=== PATIENT | female | born 1995 | race Caucasian/White ===

== ENCOUNTER 2016-07-03 03:27 | Outpatient (CLI) | payer OTHER ==
[~2016-07-03] VITALS: Ht 156.2 cm; Wt 84.9 kg
[2016-07-03 03:33] VITALS: Ht 156.2 cm; Wt 84.9 kg
[2016-07-03 03:54] VITALS: BP 117/73; PULSE 101; RESP 18
[2016-07-03] MEDS ORDERED: PRENAT PO (03:56)
[2016-07-03] MEDS ORDERED: FOL8 PO (03:57)
[2016-07-03] MEDS ORDERED: CALC-516 PO (03:57)
[2016-07-03] MEDS ORDERED: FERR325C PO (03:58)
[2016-07-03] MEDS ORDERED: LACTATED RINGER'S 1,000 ML IV STA (04:09)
[2016-07-03] MEDS ORDERED: LACTATED RINGER'S 1,000 ML IV SCH (05:15)
--- NOTE | 2016-07-03 06:36 | RADRPT ---
PROCEDURE: ULTRASOUND BIOPHYSICAL PROFILE CLINICAL INDICATION: 21-year-old female with cramping for viability. TECHNIQUE: Multiple sonographic images were obtained in order to perform a biophysical profile The images were reviewed on a PACS workstation. COMPARISON: None. FINDINGS: There is a single viable intrauterine gestation. There is a vertex presentation. Cardiac activity i s present at 143 beats per minute. The placenta is anterior. The results of the biophysical profile are as follows: breathing movement = 2/2 Gross body movement = 2/2 tone = 2/2 Qualitative amniotic fluid volume = 2/2 Amniotic fluid index equals 9.2 cm. This yields a biophysical profile score of 8/8. IMPRESSION: Biophysical profile score is 8/8. .Shelton Whitaker MD, MD Date Time Electronically viewed and signed by .Shelton Whitaker MD, MD on 07/03/2016 06:36 .M/
--- NOTE | 2016-07-03 07:55 | TRIAGE ---
OB Triage Datetime Report Generated by CPN: 07/03/2016 07:55 Datetime: 07/03/2016 07:24 Maternal Assessment Level of Consciousness: Fully Conscious DTR's/Clonus: DTRs 2+ Headache: Denies Blurred Vision: No Nausea/Vomiting: Denies RUQ Epigastric Pain: Denies Facial Edema: None Labor Evaluation Frequency: NONE AT THIS TIME Pattern: Normal: <= 5 Contractions in 10 Minutes Resting Tone Ehrenberg: Relaxed Heart Rate FHR Baseline Rate: 125 Monitor Mode: External US FHR Baseline Changes: No Baseline Change Variability: Moderate 6-25 bpm Accelerations: 15X15 Decelerations: None Category: Category I Membrane Status: Intact Datetime: 07/03/2016 07:03 Stage of : OB Triage Labor Evaluation Frequency: 0 Monitor Mode: External Resting Tone Ehrenberg: Relaxed Heart Rate FHR Baseline Rate: 120 Monitor Mode: External US Variability: Moderate 6-25 bpm Accelerations: 15X15 Decelerations: None Category: Category I Pain Assessment Pain Scale: 0 Pain Presence: None/Denies Pain Type: N/A Datetime: 07/03/2016 06:24 Stage of : OB Triage Bedside Blood Glucose: 81 Datetime: 07/03/2016 06:11 Stage of : OB Triage Datetime: 07/03/2016 06:00 Labor Evaluation Frequency: irregular Monitor Mode: External Duration (sec)2399: 40-50 Quality: Mild Resting Tone Ehrenberg: Relaxed Heart Rate FHR Baseline Rate: 120 Monitor Mode: External US Variability: Moderate 6-25 bpm Accelerations: 15X15 Decelerations: None Category: Category I Datetime: 07/03/2016 04:32 Vaginal Exam Dilatation (cms): 2.0 Effacement (%): 50 Station: -3 Exam By: M RANGEL Vaginal Bleeding: None Cervix, Consistency: Firm Cervix, Position: Posterior Presentation 'A': Cephalic Datetime: 07/03/2016 04:29 Stage of : OB Triage Labor Evaluation Frequency: 2-4 Monitor Mode: External Duration (sec)2399: 40-50 Quality: Mild Resting Tone Ehrenberg: Relaxed Contraction Comments: Irritability noted Heart Rate FHR Baseline Rate: 125 Monitor Mode: External US Variability: Moderate 6-25 bpm Accelerations: 15X15 Decelerations: None Category: Category I Datetime: 07/03/2016 03:51 Stage of : OB Triage Assessment Type: Triage Maternal Assessment Level of Consciousness: Fully Conscious DTR's/Clonus: DTRs 1+ Headache: Denies Blurred Vision: Yes Respiratory Effort: Unlabored Breath Sounds, Left: Clear and Equal Breath Sounds, Right: Clear and Equal Nausea/Vomiting: Denies RUQ Epigastric Pain: Denies Lower Extremities Edema: Bilateral Lower Extremities Degree: 1+ Upper Extremities Edema: None Degree: None Facial Edema: None Fall Risk Assessment History of Falling: (0) No Secondary Diagnosis: (15) Yes (Annotations: GDM DIET CONTROLLED) Ambulatory Aid: (0) Bedrest/Nurse Assist IV Therapy: (0) No Gait: (0) Normal/Bedrest/Immobile Mental Status: (0) Oriented to Own Ability Fall Score: 15 Fall Risk Score Definition: No Risk: No action required Pain Assessment Pain Scale: 6 Pain Presence: Intermittent Pain Type: Cramping Pain Location: Abdomen; Other (Annotations: LOW ABDOMEN) Pain Relief Measures: Comfort Measures Datetime: 07/03/2016 03:41 Stage of : OB Triage Monitor Mode: External Monitor Mode: External US Datetime: 07/03/2016 03:30 Time of Arrival: 07/03/2016 03:21 EGA: 34.1 Arrived By: Wheelchair Arrived From: Home Chief Complaint: LOW ABD PAIN Movement: Present Contractions: Irregular Time Contractions Began: 07/03/2016 02:00 Rupture of Membranes: Denies Vaginal Bleeding: None Vaginal Discharge: Denies Recent Sexual Intercouse: Denies Abdominal Trauma: Not Applicable Patient Complaints: Cramping Initial Plan: VS, EFM, IV HYDRATION,, SVE, BPP, BS, LABORIST TO EVAL PT FOR DC
--- NOTE | 2016-07-03 08:02 | PN ---
Date/Time of Note Date/Time of Note DATE: 07/03/16 TIME: 07:58 OB Subjective Subjective Subjective Patient is a 21-year-old 1 para 0 at 34+ weeks gestation who presents with occasional contractions She reports no leaking fluid, no vaginal bleeding She reports positive movement She has had good care OB Objective Objective Objective No regular contractions noted NST reactive Biophysical profile 8 out of 8 HEENT: WNL Abdomen: WNL Extremities: Normal Cervical Dilatation: 1cm Accelerations: Accelerations Present Decelerations: No Decelerations Varibility: Moderate Contractions on Admission: >10 Minutes Apart OB Assessment/Plan Other plan: Plan to be discharged home Patient instructed to return if the contractions are regular or any evidence of leaking fluid, vaginal bleeding or no movement Patient was counseled to call her PLASTIC EYE TECHNICIAN and follow up with him in 1-2 days MIGUEL LOONEY Jul 03, 2016 08:02
== END 2016-07-03 07:45 | disposition home or self-care (01) ==
LOC: OBT 03:27 → L-D 03:29 → OBT 07:45
PROVIDERS: ATTEND Obstetrics & Gynecology
DX: O62.9 Abnormality of forces of labor, unspecified (principal); O24.410 Gestational diabetes mellitus in pregnancy, diet controlled; Z3A.34 34 weeks gestation of pregnancy
CPT/HCPCS: 36415; 76818; 82962; 96365; 96372; 96375; J7120; Z7500; G0463

== ENCOUNTER 2016-07-03 17:53 | Inpatient (IN) | payer OTHER ==
[~2016-07-03] VITALS: Ht 157.5 cm; Wt 87.0 kg
[~2016-07-03 17:53] MED LIST: CALC-516 PO; FERR325C PO; FOL8 PO; PRENAT PO
[2016-07-03 18:02] VITALS: Ht 157.5 cm; Wt 87.0 kg
[2016-07-03 18:04] VITALS: BP 123/64; PULSE 98; RESP 18
--- NOTE | 2016-07-03 18:57 | HP ---
Date/Time of Note Date/Time of Note DATE: 07/03/16 TIME: 18:48 OB - History Hx of Present Free Text/Dictation Patient is 1 para 0 at 34 weeks of gestation who presents with contractions She also reports of dark vaginal bleeding Patient was seen earlier in triage today and the OB ultrasound was within normal limits and she was sent home and told to return if the contractions are regular Chief Complaint: contractions : 1 Para: 0 Care: Good Care Ultrasounds: Other (OB ultrasound from this morning within normal limits) Abnormal Ultrasound Findings: OB ultrasound from this morning within normal limits Placenta anterior; no evidence of previa NICHOLAS of 9.2 Biophysical profile of 8 out of 8 Past Family/Social History * Past Medical, Surgical, Family and Obstetric Histories reviewed from chart. OB Admission Exam Vital Signs Vital Signs Vital Signs Date Time Temp Pulse Resp B/P Pulse Ox O2 Delivery O2 Flow Rate FiO2 07/03/16 18:04 98.0 98 18 123/64 Room Air Physical Exam HEENT: WNL Abdomen: WNL Membranes: Intact Accelerations: Accelerations Present Decelerations: No Decelerations Varibility: Moderate Contractions on Admission: < 5 Minutes Apart OB Assessment/Plan Reason for admission: labor Other plan: Admit patient IV fluids and IV antibiotics Magnesium sulfate Betamethasone for lung maturity MIGUEL LOONEY Jul 03, 2016 18:57
[2016-07-03] MEDS ORDERED: MAGNESIUM SULFATE 4 GM/100 ML 100 ML IV ONE (19:00)
[2016-07-03] MEDS: LACTATED RINGER'S 1,000 ML IV SCH (19:11)
[2016-07-03] MEDS: AMPICILLIN 2 GM/NS (PMX) 100 ML IV SCH (19:13)
[2016-07-03] MEDS: BETAMET NA PHOS/AC(6 MG/ML) 5ML INJ IM SCH (19:17)
[2016-07-03 19:27] LABS: ADD SCAN DIFF NO
[2016-07-03 19:30] LABS: BASOPHIL # 0.1 10^3/ul (0.0-0.1); BASOPHILS % 0.4 % (0.0-2.0); EOSINOPHILS # 0.1 10^3/ul (0.0-0.5); EOSINOPHILS % 0.8 % (0.0-7.0); HEMATOCRIT 38.3 % (37.0-47.0); HEMOGLOBIN 12.7 g/dl (12.0-16.0); LYMPHOCYTES # 2.2 10^3/ul (0.8-2.9); MEAN CORPUSCULAR HEMOGLOBIN 29.3 pg (29.0-33.0); MEAN CORPUSCULAR HGB CONC 33.2 g/dl (32.0-37.0); MEAN CORPUSCULAR VOLUME 88.5 fl (72.0-104.0); MEAN PLATELET VOLUME 11.2 fl (7.4-10.4); MONOCYTE # 1.1 10^3/ul (0.3-0.9); MONOCYTES % 9.7 % (0.0-13.0); NEUTROPHILS % 68.3 % (30.0-74.0); PLATELET COUNT 274 10^3/UL (140-415); RED BLOOD COUNT 4.33 10^6/ul (4.20-5.40); RED CELL DISTRIBUTION WIDTH 14.1 % (11.5-14.5); WHITE BLOOD COUNT 11.7 10^3/ul (4.8-10.8)
[2016-07-03 19:50] LABS: INR 0.94; PARTIAL THROMBOPLASTIN TIME 29.3 Sec (25.0-35.0); PROTIME 12.6 Sec (12.2-14.2)
[2016-07-03 19:52] LABS: ALBUMIN 3.7 g/dl (3.3-4.9)
[2016-07-03 19:53] LABS: POTASSIUM 3.8 mmol/L (3.5-5.1)
[2016-07-03 19:55] LABS: ALBUMIN/GLOBULIN RATIO 1.02; BILIRUBIN,INDIRECT 0.2 mg/dl (0-1.1); BILIRUBIN,TOTAL 0.2 mg/dl (0.2-1.3); CREATININE 0.44 mg/dl (0.44-1.00); TOTAL PROTEIN 7.3 g/dl (6.1-8.1)
[2016-07-03] MEDS ORDERED: TERBUTALINE 1 ML ONE (20:22)
[2016-07-03] MEDS ORDERED: TERBUTALINE 1 MG/ML INJ SC ONE (20:30)
[2016-07-03] MEDS: MAGNESIUM SULFATE 20 GM/500 ML 500 ML IV SCH (21:02)
[2016-07-04] MEDS: AMPICILLIN 2 GM/NS (PMX) 100 ML IV SCH ×4 (01:23→18:34)
[2016-07-04] MEDS: MAGNESIUM SULFATE 20 GM/500 ML 500 ML IV SCH ×2 (06:08→14:21)
[2016-07-04 10:15] LABS: BARBITURATES Negative (NEGATIVE); BENZODIAZEPINES Negative (NEGATIVE); CANNABINOIDS Negative (NEGATIVE); COCAINE Negative (NEGATIVE); OPIATES Negative (NEGATIVE)
[2016-07-04] MEDS: LACTATED RINGER'S 1,000 ML IV SCH ×3 (10:33→18:33)
--- NOTE | 2016-07-04 12:40 | QN ---
Documentation Comment Laborist HD#2 Pt doing well. Denies UCs, LOF or VB. Reports normal FM VS reviewed and wnl Gen: well appearing, NAD CV: RRR, nl s1s2 Resp: CTAB Abd: soft, gravid, NT Ext: SCDs in place, 1+ pitting edema bilaterally, nontender calves FHT: baseline 120s, mod jamar, +accels, no decels [place]: irregular UCs this AM, acontractile now Utox neg Random FSBG 102 A/P: 21yo G1 at 34+2wks GA admitted 2/2 concern for PTL, also possibly GDMA1 ->Continue BMZ, #2 due tonight at 1900 ->Continue Magnesium Sulfate as ordered ->EFW as subjectively S>D ->Check fasting and 2hr PP FSBG given pt report of GDMA1 ->development educator consult requested ->NICU and MFM consult BRENNON BOJORQUEZ MD Jul 04, 2016 12:40
[2016-07-04] MEDS: ACCU-CHEK XX SCH ×2 (13:30→19:28)
--- NOTE | 2016-07-04 15:05 | CONS ---
DATE OF ADMISSION: 07/03/2016 DATE OF CONSULTATION: 07/04/2016 REFERRING PHYSICIAN: Darrius Brock MD HISTORY OF PRESENT ILLNESS: I was asked to talk with this mother, who is a 21-year-old 1, p shanthi 0 with a 34.2-week estimated gestational age infant in labor. Mother's history is significant for labor and gestational diabetes, on diet control now. Mother's blood typ e is O positive, RPR negative, HBsAg negative, HIV negative, GBS unknown, GC and chlamydia cultures negative. Mother was admitted on 07/03/2016 in labor and was started on magnesium sulfate, and has also been started on antibiotics. She received 1 dose of betamethasone on 07/03/2016 at 191 7 and second dose is to be given today. I was asked to talk with this mother about premature . I talked with mother about the infant to be monitored for respiratory distress at the time of and treatment including oxygen adminis tration, nasal cannula and CPAP administration. I also discussed about the great possibility of pre mature lung disease, which is respiratory distress syndrome requiring surfactant administration, if infant's oxygen requirement is tight. Discussed about apnea of prematurity, as well as treatment wi th nasal cannula and CPAP and caffeine. Discussed about risk of infection and to be started on anti biotics if suspicion of index is high. Discussed about hyperbilirubinemia and treatment with photot herapy. I also discussed about starting the infant on IV fluids initially to be started on feeding protocol if the is clinically stable, and to be advanced gradually. Mother would like to yulisa ast feed the infant and recommended to pump early and discussed the benefits of breast milk. Also d iscussed about feeding intolerance, poor feeding requiring gavage feeding and risk for gastroesophag eal reflux. Discussed about length of stay of 2+ weeks including weight gain, temperature stability and all p.o. feeding before discharge. Reassured them about good prognosis and all parents' questions were answered, and the discussion was concluded after parents' questions were answered. Dictated By: ARLENE GREEN/NTS Conf#: [id number] DID#: [id number] CC: DARRIUS BROCK MD;*EndCC*
--- NOTE | 2016-07-04 16:44 | RADRPT ---
PROCEDURE: Obstetrical ultrasound. CLINICAL INDICATION: , evaluation. Pelvic pain. TECHNIQUE: Transabdominal sonographic images of the pelvis are obtained. COMPARISON: 07/03/2016 FINDINGS: Single intrauterine gestation. There is a cephalic presentation. Measurements were made in order to determine age. The results are as follows: BPD = 8.73 cm HC = 30.49 cm AC = 30.40 cm FL = 6.62 cm Heart rate = 132 beats per minute The placenta is anterior. There is no evidence for an abruption or placenta previa. Ovaries are not visualized. IMPRESSION: Single intrauterine gestation of approximately 34 weeks 3 days by ultrasound criteria. [place] estimated weight = 2402 g; 45 percentile for gestational age of 34 weeks 2 days. RPTAT: AADD .Andres Medina MD, Date Time Electronically viewed and signed by .Andres Medina MD, on 07/04/2016 16:43 .B/
[2016-07-04] MEDS: BETAMET NA PHOS/AC(6 MG/ML) 5ML INJ IM SCH (19:28)
[2016-07-05] MEDS: AMPICILLIN 2 GM/NS (PMX) 100 ML IV SCH ×4 (00:13→17:34)
[2016-07-05] MEDS: MAGNESIUM SULFATE 20 GM/500 ML 500 ML IV SCH ×2 (00:17→09:51)
[2016-07-05] MEDS: LACTATED RINGER'S 1,000 ML IV SCH ×3 (02:33→17:35)
[2016-07-05] MEDS: ACCU-CHEK XX SCH ×5 (06:00→20:05)
--- NOTE | 2016-07-05 13:16 | QN ---
Documentation Comment patient seen and evaluated no complaints no contraction, vaginal bleeding/discharge ab gravid nt extremity no edema no calf tenderss ve deffered fhr cat 1 toco no contraction a/ iup at 34 wks ga, limited care, contraction currently on magso4, recommended to d/c mag 24 hrs second dose of steriods p/ continue present management ALICE VERMA MD Jul 05, 2016 13:16
[2016-07-05] MEDS ORDERED: DIPHTH/TET/ACEL PERTUSS (ADULT) 0.5 ML VIAL IM* ONE (13:30)
[2016-07-05] MEDS ORDERED: INSULIN ASPART [NOVOLOG] 3 ML PEN SC SCH (14:00)
[2016-07-06] MEDS: AMPICILLIN 2 GM/NS (PMX) 100 ML IV SCH ×5 (00:09→23:39)
[2016-07-06] MEDS ORDERED: LACTATED RINGER'S 500 ML IV ONE (01:00)
[2016-07-06] MEDS: LACTATED RINGER'S 1,000 ML IV SCH ×4 (02:33→23:39)
[2016-07-06] MEDS: ACCU-CHEK XX SCH ×4 (09:00→20:05)
[2016-07-06] MEDS ORDERED: MAGNESIUM SULFATE 4 GM/100 ML 100 ML IVPB ONE (09:00)
[2016-07-06] MEDS: MAGNESIUM SULFATE 20 GM/500 ML 500 ML IV SCH ×2 (09:38→19:07)
--- NOTE | 2016-07-06 19:48 | QN ---
Documentation Comment patient seen and evaluated patient was complaining of regular contraction in am. Patient was restarted on mgso for tocolysis. rocommed to d/c magso in am by dr. bobby vs stable afebrile abd gravid nt extremity no edema no calf tenderss ve 2/90/-2 a/ iup at 34 wks ga, s/p steriod tx X 2 currently on mgso for tocolysis secondary to PTL, limited care p/ d/c magso in am and expectant managment ALICE VERMA MD Jul 06, 2016 19:48
[2016-07-07] MEDS ORDERED: LACTATED RINGER'S 1,000 ML IV SCH (04:37)
[2016-07-07] MEDS ORDERED: METHYLERGONOVINE 0.2 MG INJ IM PRN ×2 (05:00→08:30)
[2016-07-07] MEDS ORDERED: LIDOCAINE 1% (MPF) 30 ML INJ INJ PRN (05:00)
[2016-07-07] MEDS ORDERED: IBUPROFEN 600 MG TAB PO PRN (05:00)
[2016-07-07] MEDS ORDERED: CARBOPROST 250 MCG INJ IM PRN ×2 (05:00→08:30)
[2016-07-07] MEDS ORDERED: BUTORPHANOL 2 MG INJ IV PRN ×2 (05:00)
[2016-07-07] MEDS ORDERED: ACETAMINOPHEN/CODEINE #3 TAB PO PRN (05:00)
[2016-07-07] MEDS ORDERED: OXYTOCIN 30 UNITS/LR 500 ML IV PRN ×2 (05:00→08:30)
[2016-07-07] MEDS ORDERED: MISOPROSTOL 200 MCG TAB PR PRN ×2 (05:00→08:30)
[2016-07-07] MEDS ORDERED: OXYTOCIN 30 UNITS/LR 500 ML IV SCH ×3 (05:00)
[2016-07-07] MEDS ORDERED: LACTATED RINGER'S 1,000 ML IV ONE (05:12)
[2016-07-07] MEDS ORDERED: FENTAnyl 2MCG/ML-ROPIV 0.2% 100 ML BAG EPI SCH (05:30)
[2016-07-07] MEDS ORDERED: PROCHLORPERAZINE 10 MG INJ IV PRN (05:30)
[2016-07-07] MEDS ORDERED: DIPHENHYDRAMINE 50 MG INJ IV PRN (05:30)
[2016-07-07] MEDS ORDERED: ONDANSETRON 4 MG INJ IV PRN ×2 (05:30→08:30)
[2016-07-07] MEDS ORDERED: ONDANSETRON 4 MG INJ IV ONE (05:30)
[2016-07-07] MEDS ORDERED: NALOXONE (0.4 MG/ML) INJ IV PRN (05:30)
[2016-07-07] MEDS ORDERED: morphine 2 MG INJ IV PRN ×2 (05:30)
[2016-07-07] MEDS ORDERED: KETOROLAC 30 MG INJ IV PRN (05:30)
[2016-07-07] MEDS ORDERED: CITRIC ACID/NA CITRATE 30 ML CUP PO ONE (05:30)
[2016-07-07] MEDS: LACTATED RINGER'S 1,000 ML IV SCH (05:48)
[2016-07-07] MEDS ORDERED: LACTATED RINGER'S 1,000 ML IV PRN (06:00)
[2016-07-07] MEDS: ACCU-CHEK XX SCH (06:00)
[2016-07-07] MEDS: AMPICILLIN 2 GM/NS (PMX) 100 ML IV SCH (06:17)
[2016-07-07] MEDS: MAGNESIUM SULFATE 20 GM/500 ML 500 ML IV SCH (06:20)
--- NOTE | 2016-07-07 08:21 | LDN ---
Date/Time of Note Date/Time of Note DATE: 07/07/16 TIME: 08:19 Delivery Summary / PTL Weeks of Gestation 34wks 5 days Placenta Delivered: Spontaneously Meconium: none Episiotomy: No Laceration repair: 1st degree vaginal laceration repair with 309 chromic Anesthesia type: Epidural Estimated blood loss: 200 Sponge & Needle done & correct: Yes Any foreign bodies felt in the: No Problems: Infant Delivery Information Sex Infant Sex: male Apgars 1 Minute: 8 5 Minute: 9 Suctioning Nose & mouth suctioned at [place]: No Delee suction performed: No Umbilical Cord Umbilical cord with: 3 Vessels Cord presentations: no nuchal cord Cord Blood was obtained: Yes Mother & Baby Disposition Disposition Baby to NICU: Yes ALICE VERMA MD Jul 07, 2016 08:21
[2016-07-07] MEDS ORDERED: SENNA/DOCUSATE NA (8.6MG/50MG) TAB PO PRN (08:30)
[2016-07-07] MEDS ORDERED: OXYCODONE/ASPIRIN (4.88/325) TAB PO PRN ×2 (08:30)
[2016-07-07] MEDS ORDERED: WITCH HAZEL/GLYCERIN PAD PR PRN (08:30)
[2016-07-07] MEDS ORDERED: BENZOCAINE 20% 56 ML SPRAY TOP PRN (08:30)
[2016-07-07] MEDS ORDERED: LANOLIN 7 GM TUBE TOP PRN (08:30)
[2016-07-07 10:00] VITALS: BP 123/66; PULSE 90; RESP 20
[2016-07-07] MEDS: SENNA/DOCUSATE NA (8.6MG/50MG) TAB PO SCH ×2 (11:00→21:00)
[2016-07-07] MEDS: IBUPROFEN 600 MG TAB PO SCH ×2 (13:45→17:57)
[2016-07-07] MEDS: LACTATED RINGER'S 1,000 ML IV* SCH ×2 (14:50→19:30)
[2016-07-07 14:53] VITALS: BP 118/69; PULSE 90; RESP 20
[2016-07-07 17:04] VITALS: BP 105/59; PULSE 97; RESP 20
[2016-07-07 21:50] VITALS: BP 113/60; PULSE 90; RESP 18
[2016-07-08] VITALS: BP 115/64; PULSE 92; RESP 18
[2016-07-08 04:00] VITALS: BP 117/72; PULSE 75; RESP 18
[2016-07-08] MEDS: IBUPROFEN 600 MG TAB PO SCH ×5 (06:00→23:34)
[2016-07-08 08:20] VITALS: BP 130/74; RESP 19
[2016-07-08] MEDS: SENNA/DOCUSATE NA (8.6MG/50MG) TAB PO SCH ×2 (09:05→21:44)
[2016-07-08 10:11] LABS: ADD SCAN DIFF NO
[2016-07-08 10:14] LABS: BASOPHIL # 0.1 10^3/ul (0.0-0.1); BASOPHILS % 0.3 % (0.0-2.0); EOSINOPHILS # 0.1 10^3/ul (0.0-0.5); EOSINOPHILS % 0.7 % (0.0-7.0); HEMATOCRIT 32.2 % (37.0-47.0); HEMOGLOBIN 10.6 g/dl (12.0-16.0); LYMPHOCYTES % 11.5 % (18.0-55.0); MEAN CORPUSCULAR HEMOGLOBIN 29.8 pg (29.0-33.0); MEAN CORPUSCULAR HGB CONC 32.9 g/dl (32.0-37.0); MEAN CORPUSCULAR VOLUME 90.4 fl (72.0-104.0); MEAN PLATELET VOLUME 10.4 fl (7.4-10.4); MONOCYTE # 1.1 10^3/ul (0.3-0.9); MONOCYTES % 6.1 % (0.0-13.0); NEUTROPHIL # 14.1 10^3/ul (1.6-7.5); PLATELET COUNT 262 10^3/UL (140-415); RED BLOOD COUNT 3.56 10^6/ul (4.20-5.40); RED CELL DISTRIBUTION WIDTH 14.2 % (11.5-14.5); WHITE BLOOD COUNT 17.6 10^3/ul (4.8-10.8)
[2016-07-08 17:22] VITALS: BP_SYST 115; BP_SYST 125; BP_DIAS 65; RESP 20
[2016-07-08 20:00] VITALS: BP 120/66; PULSE 95; RESP 20
--- NOTE | 2016-07-08 20:04 | PD.PPDC ---
JD EDWARDS CONSULTANT Discharge Instruction Condition Patient Condition: Fair Diet Diet: Resume Regular Diet Activity/Restrictions Restrictions: No Sexual Activity Nothing in the Vagina No [place] No Tampons, douche Follow-up Follow-up with Physician: 2, Week/Weeks Return to clinic for PRINT LINE INSPECTOR Instructions: Fever greater than 101 Chills Worsening abdominal pain Excessive Vaginal Bleeding More than 2 pads per hour Unable to tolerate diet OB Instructions: Breast Tenderness Depression Blurried Vision Headache Surgical Instructions: Incisional Drainage Incisional Redness ALICE VERMA MD Jul 08, 2016 20:04
[2016-07-09 03:55] VITALS: BP 123/67; PULSE 82; RESP 18
[2016-07-09] MEDS: IBUPROFEN 600 MG TAB PO SCH (05:30)
[2016-07-09 07:50] VITALS: BP 105/63; PULSE 84; RESP 16
[2016-07-09] MEDS: SENNA/DOCUSATE NA (8.6MG/50MG) TAB PO SCH (08:47)
--- NOTE | 2016-07-14 11:04 | DS ---
DATE OF ADMISSION: 07/03/2016 DATE OF DISCHARGE: 07/09/2016 PRIMARY DIAGNOSIS: Intrauterine at 34 weeks' gestational age, labor, delivered. PROCEDURE: Normal spontaneous vaginal delivery. CONDITION ON DISCHARGE: Stable. ACTIVITY: None per vagina, no heavy lifting x6 weeks. DIET: Regular. MEDICATIONS ON DISCHARGE: 1. Motrin. 2. Iron. 3. Colace. DISCHARGE SUMMARY: Ms. Jayesh Galindo is a 21-year-old 1, para 1, who was admitted on secondary to contractions. She received steroid treatment for lung maturity and magnesium sulfate for tocolysis. She went into labor on 07/07/2016 and had a viable mal e, Apgars 8 and 9, respectively at 1 and 5 minutes. She had an uneventful day 1 and 2. She is ambulating, tolerating diet, positive flatulence, positive bowel movement. She will follow u p in the office in 3 weeks for care. Dictated By: ALICE VILLAR/PURVI Conf#: [id number] DID#: [id number]
== END 2016-07-09 10:45 | disposition home or self-care (01) | DRG 775 ==
LOC: OBT 17:53 → L-D 17:56 → OBT 18:30 → L-D 18:30 → OBG 07-05 06:24 → L-D 07-07 04:58 → PP1 07-07 09:43
PROVIDERS: ADMIT Obstetrics & Gynecology; ATTEND Obstetrics & Gynecology
PROC: 10E0XZZ Delivery of Products of Conception, External Approach (ICD-10-PCS; principal; 2016-07-07)
PROC: 0HQ9XZZ Repair Perineum Skin, External Approach (ICD-10-PCS; 2016-07-07)
DX: O60.14X0 Preterm labor third trimester with preterm delivery third trimester, not applicable or unspecified (principal); O24.420 Gestational diabetes mellitus in childbirth, diet controlled; O70.0 First degree perineal laceration during delivery; Z3A.34 34 weeks gestation of pregnancy; Z37.0 Single live birth
CPT/HCPCS: 62319; 76815; 80053; 80307; 82962; 83735; 85025; 85610; 85730; 86850; 86900; 86901; 87340; 90715; 99464; A4310; G0463; J0290; J0702; J1815; J2405; J2590; J3010; J3105; J3475; J7120